=== PATIENT | male | born 1960 | race Caucasian/White ===

== ENCOUNTER → 2017-03-15 | Day surgery (SDC) | payer BC ==
[2012-10-27 06:51] VITALS: BP 127/79
[~2017-03-15] MED LIST: FIORICET 325 MG1 TAB PO
== END ==
LOC: MSO 13:01
DX: K21.0 Gastro-esophageal reflux disease with esophagitis (principal); R13.10 Dysphagia, unspecified; I10 Essential (primary) hypertension; F17.210 Nicotine dependence, cigarettes, uncomplicated
CPT/HCPCS: 00740; A4649; J7030

== ENCOUNTER 2017-06-25 09:41 | Emergency (ER) | payer BC ==
[~2017-06-25] VITALS: Ht 182.9 cm; Wt 100.0 kg
[2017-06-25] MEDS ORDERED: VALSARTAN80 MG PO (09:50)
[2017-06-25] MEDS ORDERED: PANTOPRAZOLE SO40 MG PO (09:51)
[2017-06-25 10:33] LABS: EOS # 0.4 (0.04-0.40); EOS % 4.9 % (0.0-4.0); HEMATOCRIT 42.8 % (42.0-52.0); HEMOGLOBIN 14.3 g/dL (13.5-18.0); LYMPH# 2.3 (1.50-4.00); MEAN CELL VOLUME 88 fl (78-100); MEAN CORPUSCULAR HEMOGLOBIN 29 pg (27-31); MEAN CORPUSCULAR HGB CONC 33 g/dL (33-37); MEAN PLATELET VOLUME 8.9 fl (7.4-10.4); MONO # 0.7 (0.20-0.80); NEU # 4.2 (1.40-6.50); PLATELET COUNT 273 K/mm3 (130-400); RED BLOOD COUNT 4.87 M/mm3 (4.20-5.60); RED CELL DISTRIBUTION WIDTH 13.3 % (11.5-14.5); WHITE BLOOD COUNT 7.6 K/mm3 (4.8-10.8)
[2017-06-25 10:43] LABS: ALBUMIN 3.9 g/dL (3.5-5.0); BUN/CREATININE RATIO 16.7 (6.0-26.0); CALCIUM 9.7 mg/dL (8.4-10.2); POTASSIUM 4.2 mmol/L (3.6-5.0); TOTAL BILIRUBIN 0.4 mg/dL (0.2-1.3); TOTAL PROTEIN 7.2 g/dL (6.3-8.2)
[2017-06-25 10:45] LABS: PROTHROMBIN TIME 9.1 SECONDS (9.0-12.0)
[2017-06-25 11:24] VITALS: BP 155/86
== END 2017-06-25 11:27 | disposition home or self-care (01) ==
LOC: ED 09:41
PROVIDERS: Nurse Practitioner
DX: I10 Essential (primary) hypertension (principal); K21.9 Gastro-esophageal reflux disease without esophagitis